=== PATIENT | male | born 2000 | race Caucasian/White ===

== ENCOUNTER → 2020-07-25 | Outpatient (CLI) | payer SELFPAY | END | disposition home or self-care (01) | LOC: COVID19 11:40 | PROVIDERS: ATTEND Family Medicine | DX: Z20.828 Contact with and (suspected) exposure to other viral communicable diseases (principal) ==

== ENCOUNTER 2020-10-19 17:06 | Emergency (ER) | payer OTHER ==
[~2020-10-19] VITALS: Ht 187.9 cm; Wt 72.6 kg
[2020-10-19 17:20] VITALS: BP 123/44
== END 2020-10-19 17:45 | disposition home or self-care (01) ==
LOC: ED 17:06
DX: S13.9XXA Sprain of joints and ligaments of unspecified parts of neck, initial encounter (principal); S00.83XA Contusion of other part of head, initial encounter; F17.200 Nicotine dependence, unspecified, uncomplicated; V89.2XXA Person injured in unspecified motor-vehicle accident, traffic, initial encounter; Y93.89 Activity, other specified; Y92.89 Other specified places as the place of occurrence of the external cause; Y99.8 Other external cause status